=== PATIENT | male | born 1995 | race Caucasian/White ===

== ENCOUNTER 2022-11-15 18:18 | Emergency (ER) | payer BC, SELFPAY ==
--- NOTE | 2022-11-15 18:30 | ED.GENADULT ---
HPI - General Adult General Chief complaint: Skin/Abscess/Foreign Body Stated complaint: Rt Foot Irritation Time Seen by Provider: 11/15/22 18:30 Source: patient Mode of arrival: ambulatory Limitations: no limitations History of Present Illness HPI narrative: 27-year-old male patient presents to the [facility] with complaints of a rash to the right foot area. Patient states he has been dealing with athlete's foot for the past year. Has tried using [id number] foot cream that has helped at was on his way home from vacation today and states he has been in hot tubs and pulls for the past week and noticed on the way home it was getting significantly worse as well as some bleeding that was going on in between the toes when to come and be seen today. Related Data Allergies Allergy/AdvReac Type Severity Reaction Status Date / Time No Known Allergies Allergy Verified 11/15/22 18:24 Review of Systems Review of Systems: CONSTITUTIONAL: Denies fever, chills, or sweats. EYES: Denies visual changes, redness, or discharge. ENT: Denies rhinorrhea, congestion, sore throat, or otalgia. CARDIOVASCULAR: Denies chest pain, palpitations, or edema. RESPIRATORY: Denies cough or dyspnea. GASTROINTESTINAL: Denies abdominal pain, nausea, vomiting, or diarrhea. GENITOURINARY: Denies dysuria or hematuria. SKIN: Positive rash with itching and bleeding to right foot x1 year MUSCULOSKELETAL: Denies back pain, joint pain, or myalgia. NEUROLOGIC: Denies headache, numbness, or weakness. PSYCHIATRIC: Denies anxiety or depression. PMFSH Comments At the time of my signature I agree with nursing past medical history, surgical, social, and family history. There is no relevant family history pertinent to the presenting complaint. Exam Narrative: GENERAL: Well-appearing, well-nourished, and in no acute distress. HEAD: Normocephalic, atraumatic. EYES: PERRLA and EOMI. ENT: Nares clear, no rhinorrhea or epistaxis. Mucous membranes moist. NECK: Supple. No lymphadenopathy CHEST: Clear to auscultation. No respiratory distress. HEART: Regular rate and rhythm. No murmur heard. Normal peripheral pulses. ABDOMEN: Soft, nontender, nondistended, normal active bowel sounds. EXTREMITIES: Normal range of motion. No edema. SKIN: Warm, dry, no rash. patient appears to have a healing red rash noted in between the 4th and 5th digit on the right foot. There is what appears to be some moist white skin the inside in between the toes. No active drainage at this time no visible bleeding noted at this time. NEURO: No focal deficits. Alert and oriented x3. Course Course Level of Care: Express Care Visit Vital Signs Vital signs: Vital Signs Temperature 36.2 C L 11/15/22 18:33 Pulse Rate 61 11/15/22 18:33 Respiratory Rate 18 11/15/22 18:33 Blood Pressure 121/73 11/15/22 18:33 Pulse Oximetry 100 11/15/22 18:33 Oxygen Delivery Room Air 11/15/22 18:33 Temperature 36.2 C L 11/15/22 18:33 Pulse Rate 61 11/15/22 18:33 Respiratory Rate 18 11/15/22 18:33 Blood Pressure 121/73 11/15/22 18:33 Pulse Oximetry 100 11/15/22 18:33 Oxygen Delivery Room Air 11/15/22 18:33 vital signs reviewed Medical Decision Making MDM Narrative Medical decision making narrative: Plan care patient is discharged home with some ketoconazole cream to help with the fungal infection. Discussed with patient's very important that he does not do any foot fas and is very important to dry the feet after cleaning and apply the ointment when he can he needs to air out his feet when he gets home from work. Placed patient is aware the plan care denies any other questions or concerns at this time. Differential Diagnosis Differential Diagnosis: differential diagnosis: Contact dermatitis, poison [place], poison [place], psoriasis, eczema, allergic reaction, drug reaction, scabies, tinea syphilis, lung disease, viral exanthema, pityriasis, erythema multiforme. Vi
[2022-11-15 18:33] VITALS: BP 121/73; PULSE 61; RESP 18; TEMP 36.2; O2SAT 100
== END 2022-11-15 18:49 | disposition home or self-care (01) ==
PROVIDERS: Emergency Provider Nurse Practitioner Family
DX: B35.3 Tinea pedis (principal)
CPT/HCPCS: 99203; G0463